=== PATIENT | female | born 1950 | race Caucasian/White ===

== ENCOUNTER 2024-03-19 06:03 | Day surgery (SDC) | payer MEDICARE, BC ==
[2024-03-19] MEDS ORDERED: fentaNYL 100 MCG/2 ML SDV IV ONE (06:04)
[2024-03-19] MEDS ORDERED: Midazolam 1 MG/ML 2 ML SDV IV ONE (06:04)
[2024-03-19] MEDS ORDERED: fentaNYL 100 MCG/2 ML SDV ONE (06:19)
[2024-03-19] MEDS ORDERED: Midazolam 1 MG/ML 2 ML SDV ONE (06:19)
[2024-03-19] MEDS: Dextrose 5%-0.45% NaCl 1,000 ML IV SCH (06:48)
[2024-03-19] MEDS: fentaNYL 100 MCG/2 ML SDV IV ONE ×2 (07:33→07:34)
[2024-03-19] MEDS: Midazolam 1 MG/ML 2 ML SDV IV ONE ×6 (07:34→07:45)
[2024-03-19 09:26] VITALS: PULSE 57
[2024-03-19 09:46] VITALS: BP 125/58
== END 2024-03-19 10:03 | disposition home or self-care (01) ==
LOC: DL.ENDO 06:03
PROVIDERS: ATTEND Internal Medicine Gastroenterology
DX: Z12.11 Encounter for screening for malignant neoplasm of colon (principal); K57.30 Diverticulosis of large intestine without perforation or abscess without bleeding; I10 Essential (primary) hypertension; E78.5 Hyperlipidemia, unspecified
CPT/HCPCS: G0121; J2250; J3010; J7799

== ENCOUNTER 2025-04-18 08:07 | Emergency (ER) | payer MEDICARE, BC ==
[2025-04-18 09:32] VITALS: BP 115/76; PULSE 64
== END 2025-04-18 09:29 | disposition home or self-care (01) ==
LOC: DL.ED 08:07
DX: M79.675 Pain in left toe(s) (principal); I10 Essential (primary) hypertension; E78.00 Pure hypercholesterolemia, unspecified; Z79.899 Other long term (current) drug therapy; Z88.5 Allergy status to narcotic agent
CPT/HCPCS: 73660-TA; 99282; 99283